=== PATIENT | female | born 1970 | race Hispanic/Latino ===

== ENCOUNTER 2017-10-29 09:06 | Outpatient (CLI) | payer BC ==
--- NOTE | 2017-10-29 11:53 | RAD ---
ABDOMEN 1 VIEW: Date: 10/29/17 HISTORY: Iron deficiency anemia. Abdominal pain. FINDINGS: Gas and stool are apparent throughout the colon. Small bowel gas pattern is nonspecific. Phleboliths project over the pelvis. IMPRESSION: No significant abnormalities are demonstrated. POS: [facility]
== END 2017-10-29 09:07 | disposition home or self-care (01) ==
LOC: RAD 09:06
PROVIDERS: ATTEND Family Medicine
DX: D50.9 Iron deficiency anemia, unspecified (principal)
CPT/HCPCS: 74018

== ENCOUNTER 2017-11-04 09:57 | Outpatient (CLI) | payer BC ==
--- NOTE | 2017-11-04 14:37 | RAD ---
DOUBLE CONTRAST BARIUM ENEMA: 11/04/2017 HISTORY: Iron deficiency anemia. Recent incomplete colonoscopy. FINDINGS: [employer] [facility] [employer] imaging demonstrates a nonobstructed bowel gas pattern. Double-contrast barium enema demonstrates a few scattered sigmoid diverticula. Contrast media extend s to the level of the cecal tip with extension into the terminal ileum. No colonic polyp disease, ma ss lesion, or stricture noted. A few diverticula are noted within the medial aspect of the descendin g colon. IMPRESSION: Unremarkable double contrast barium enema, aside from a few scattered diverticula. POS: [facility]
== END 2017-11-04 09:58 | disposition home or self-care (01) ==
LOC: RAD 09:57
PROVIDERS: ATTEND Family Medicine
DX: D50.9 Iron deficiency anemia, unspecified (principal)
CPT/HCPCS: 74280

== ENCOUNTER 2018-02-25 12:53 | Outpatient (CLI) | payer BC | END 2018-02-25 12:54 | disposition home or self-care (01) | LOC: BICMAMMO 12:53 | PROVIDERS: ATTEND Family Medicine | DX: Z12.31 Encounter for screening mammogram for malignant neoplasm of breast (principal) | CPT/HCPCS: 77063; 77067 ==

== ENCOUNTER 2019-03-07 15:34 | Outpatient (CLI) | payer BC ==
--- NOTE | 2019-03-07 16:43 | MMO ---
Bilateral MAMMO Bilat Screen [facility]. CLINICAL HISTORY: Patient is 48 years old and is seen for screening. The patient has no family history of breast cancer. The patient has no personal history of cancer. VIEWS: The views performed were: bilateral craniocaudal with tomosynthesis and bilateral mediolateral oblique with tomosynthesis. FILMS COMPARED: The present examination has been compared to prior imaging studies performed at [facility] on 02/19/2016, 02/25/2016, 02/22/2017 and 02/25/2018. MAMMOGRAM FINDINGS: The breasts are heterogeneously dense, which could obscure a lesion on mammography. There are stable benign appearing calcifications seen in both breasts. There are no suspicious masses, suspicious calcifications, or new areas of architectural distortion. IMPRESSION: THERE IS NO MAMMOGRAPHIC EVIDENCE OF MALIGNANCY. A ROUTINE FOLLOW-UP MAMMOGRAM IN 1 YEAR IS RECOMMENDED. THE RESULTS OF THIS EXAM WERE SENT TO THE PATIENT. ACR BI-RADS Category 2 - Benign finding MAMMOGRAPHY NOTE: 1. A negative mammogram report should not delay a biopsy if a dominant of clinically suspicious mass is present. 2. Approximately 10% to 15% of breast cancers are not detected by mammography. 3. Adenosis and dense breasts may obscure an underlying neoplasm. Reported by: RACHEL ROJAS MD Electonically Signed: [id number]
== END 2019-03-07 15:35 | disposition home or self-care (01) ==
LOC: BICMAMMO 15:34
PROVIDERS: ATTEND Family Medicine
DX: Z12.31 Encounter for screening mammogram for malignant neoplasm of breast (principal); E11.9 Type 2 diabetes mellitus without complications
CPT/HCPCS: 77063; 77067

== ENCOUNTER 2022-02-17 11:17 | Outpatient (CLI) | payer BC | END 2022-02-17 11:18 | disposition home or self-care (01) | LOC: BICRAD 11:17 | PROVIDERS: ATTEND Nurse Practitioner Family | DX: M79.672 Pain in left foot (principal) ==